=== PATIENT | male | born 1990 | race Hispanic/Latino ===

== ENCOUNTER 2018-01-19 01:02 | Emergency (ER) | payer MEDICAID ==
[2018-01-19 08:50] LABS: Bacteria,Urine 1+ /HPF (Negative); Bilirubin,Urine NEG (Negative); Blood,Urine NEG (Negative); Color,Urine Yellow (Yellow); Mucus,Urine FEW /HPF; Protein,Urine <15 mg/dL mg/dL (Negative)
--- NOTE | 2018-01-19 09:42 | Emergency Department Report ---
HPI - General Chief Complaint: Urogenital-Male Time Seen by Provider: 01/19/18 09:28 - HPI HPI: This is a 27-year-old male, who is blind, presents to emergency department with complaint of some redness to the tip of his penis after having sex for the very first time with his girlfriend, who is bedside. He says that there is a little bit of clear drainage that she noticed but otherwise he denies any cloudy or cold full discharge, dysuria or any other lesions. No pain to the penis or scrotum. He has not taken anything for his symptoms prior to presentation. No recent travel or sick contacts at home. He does not have a primary care physician. ED Past Medical Hx - Past Medical History Previous Medical History?: Yes Additional medical history: Totally Blind - Surgical History Past Surgical History?: No - Social History Smoking Status: Never Smoker ED Review of Systems ROS: Stated complaint: PENIS PAIN Other details as noted in HPI Comment: All other systems reviewed and negative Constitutional: denies: chills, fever Eyes: denies: eye pain, eye discharge, vision change ENT: denies: ear pain, throat pain Respiratory: denies: cough, shortness of breath, wheezing Cardiovascular: denies: chest pain, palpitations Gastrointestinal: denies: abdominal pain, nausea, diarrhea Genitourinary: denies: dysuria, hematuria, testicular pain Musculoskeletal: denies: back pain, joint swelling, arthralgia Skin: change in color (redness to tip of penis). denies: pruritus Neurological: denies: headache, weakness, paresthesias Physical Exam - Physical Exam Vital Signs: Vital Signs 01/19/18 05:22 Temperature 98.9 F Pulse Rate 88 Respiratory 20 Rate Blood Pressure 131/72 O2 Sat by Pulse 98 Oximetry Physical Exam: GENERAL: The patient is well-developed well-nourished. HENT: Normocephalic. Atraumatic. Patient has moist mucous membranes. EYES: Extraocular motions are intact. NECK: Supple. Trachea is midline. CHEST/LUNGS: Clear to auscultation. There is no respiratory distress noted. HEART/CARDIOVASCULAR: Regular. There is no tachycardia. There is no murmur. ABDOMEN: Abdomen is soft, nontender. Patient has normal bowel sounds. There is no abdominal distention. SKIN: Skin is warm and dry. NEURO: The patient is awake, alert, and oriented. The patient is cooperative. The patient has no focal neurologic deficits. The patient has normal speech. MUSCULOSKELETAL: There is no tenderness or deformity. There is no limitation range of motion. There is no evidence of acute injury. : No tenderness to palpation of the penis or scrotum. There is a small amount of redness to the glans of the penis. No visible discharge or drainage. No lesions. ED Course Vital Signs 01/19/18 05:22 Temperature 98.9 F Pulse Rate 88 Respiratory 20 Rate Blood Pressure 131/72 O2 Sat by Pulse 98 Oximetry ED Medical Decision Making - Medical Decision Making Urinalysis does not show any urinary tract infection. Patient says that he had sex with the very first time and used a condom and it did not break. Therefore it is low suspicion that the patient has a STD. Also there are no lesions and no drainage or discharge. There is a small amount of redness to the glans of the penis which may be consistent with some type of a reaction to the condom itself. Encouraged to follow up with a primary care physician and return to the ER if any worsening of his symptoms or any acute distress. - Differential Diagnosis urethritis, UTI, allergic reaction Critical Care Time: No Critical care attestation.: If time is entered above; I have spent that time in minutes in the direct care of this critically ill patient, excluding procedure time. ED Disposition Clinical Impression: Penile rash Disposition: - TO HOME OR SELFCARE Is pt being admited?: No Condition: Stable Additional Instructions: Please follow-up with a primary care physician in the next few days. Based on the history given to me, as well as the physical examination, it does not appear consistent with any known STD. I think that there is a chance that he may have had a slight reaction to the condom itself. You should continue to use condoms but you may need to try different brands or condoms made out of different materials. Please return to the emergency department immediately if there is any worsening of your symptoms or any acute distress. Referrals: CAIN VENTURA MD [Primary Care Provider] - 3-5 Days LJ HARVEY JR, MD [Staff Physician] - 3-5 Days [facility] [Outside] - 3-5 Days [facility] [Outside] - 3-5 Days Time of Disposition: 09:42
[2018-01-19 09:46] VITALS: BP 118/65
== END 2018-01-19 09:53 | disposition home or self-care (01) ==
LOC: ED 01:02
DX: N48.89 Other specified disorders of penis (principal)
CPT/HCPCS: 81001; 99283

== ENCOUNTER 2018-01-20 01:11 | Emergency (ER) | payer MEDICAID ==
[2018-01-20] MEDS ORDERED: ROCEPHIN IM ONE (08:07)
[2018-01-20] MEDS ORDERED: XYLOCAINE 1% MPF 5 mL INFILTRATI ONE (08:07)
[2018-01-20] MEDS ORDERED: ZITHROMAX PO ONE (08:07)
[2018-01-20] MEDS ORDERED: MOTRIN PO ONE (08:08)
[2018-01-20 08:11] LABS: Bilirubin,Urine NEG (Negative); Blood,Urine NEG (Negative); Color,Urine Yellow (Yellow); Protein,Urine <15 mg/dL mg/dL (Negative); Urobilinogen,Urine < 2.0 mg/dL (<2.0)
--- NOTE | 2018-01-20 08:12 | Emergency Department Report ---
ED Male HPI - General Chief complaint: Urogenital-Male Stated complaint: PENILE PAIN Time Seen by Provider: 01/20/18 07:53 Source: patient Mode of arrival: Ambulatory Limitations: No Limitations - History of Present Illness Initial comments: This is a 27-year-old male nontoxic, well nourished in appearance, no acute signs of distress presents to the ED with c/o of by mouth pain and redness to the tip at the having a sexual intercourse with his girlfriend for the first time who is at bedside. Patient stated that he has allergies to latex and use a condom and ever since then has redness and pain. Patient stated that he was seen her yesterday and had a normal urine test and was sent home to follow up with PCP but patient has not. Patient stated that symptoms have resolved. Patient state he is concerned about a STD and would like to be treated empirically. Patient also has clear drainage. Patient is currently blind by examination symptoms was discussed by girlfriend. Patient denies any testicular pain, penile ulcers, or lesions. Patient denies any fever, chills, nausea, vomiting, chest pain, short of breath, abdominal pain, back pain, stiff neck or headache. Patient denies any urinary symptoms. Patient denies any back pain. Patient stated allergies to clindamycin. Denies significant PMH. MD Complaint: other (penile pain and redness) -: days(s) (3) Location: penis Radiation: none Severity: mild Severity scale (0 -10): 8 Quality: aching Consistency: constant Improves with: none Worsens with: none discharge, rash. denies: swelling, mass, urinary retention, blood in urine, dysuria, fever, nausea/vomiting, incontinence - Related Data Sexually active: Yes Previous Rx's Medication Instructions Recorded Last Taken Type Hydrocortisone 1% [Hydrocortisone 1 applicatio TP BID #1 tube 01/20/18 Unknown Rx 1% CREAM] Allergies Allergy/AdvReac Type Severity Reaction Status Date / Time clindamycin Allergy Angioedema Verified 01/19/18 05:18 ED Review of Systems ROS: Stated complaint: PENILE PAIN Other details as noted in HPI Constitutional: denies: chills, fever Eyes: denies: eye pain, eye discharge, vision change ENT: denies: ear pain, throat pain Respiratory: denies: cough, shortness of breath, wheezing Cardiovascular: denies: chest pain, palpitations Endocrine: no symptoms reported Gastrointestinal: denies: abdominal pain, nausea, diarrhea Genitourinary: denies: urgency, dysuria Musculoskeletal: denies: back pain, joint swelling, arthralgia Skin: rash. denies: lesions Neurological: denies: headache, weakness, paresthesias Psychiatric: denies: anxiety, depression Hematological/Lymphatic: denies: easy bleeding, easy bruising ED Past Medical Hx - Past Medical History Previous Medical History?: Yes Additional medical history: Totally Blind - Surgical History Past Surgical History?: No - Social History Smoking Status: Never Smoker Substance Use Type: None - Medications Home Medications: Home Medications Medication Instructions Recorded Confirmed Last Taken Type Hydrocortisone 1% [Hydrocortisone 1 applicatio TP BID #1 tube 01/20/18 Unknown Rx 1% CREAM] ED Physical Exam - General Limitations: No Limitations General appearance: alert, in no apparent distress - Head Head exam: Present: atraumatic, normocephalic - Eye Eye exam: Present: normal appearance Pupils: Present: normal accommodation - ENT ENT exam: Present: normal exam, mucous membranes moist - Neck Neck exam: Present: normal inspection, full ROM - Respiratory Respiratory exam: Present: normal lung sounds bilaterally. Absent: respiratory distress - Cardiovascular Cardiovascular Exam: Present: regular rate, normal rhythm. Absent: systolic murmur, diastolic murmur, rubs, gallop - GI/Abdominal GI/Abdominal exam: Present: soft, normal bowel sounds - Rectal Rectal exam: Present: deferred - exam: Present: normal inspection, urethral discharge (clear colored). Absent : testicular tenderness, scrotal swelling, vertical testicular lie, circumcision External exam: Present: normal external exam, erythema. Absent: swelling, lesions, lacerations, ecchymosis, bleeding - Extremities Exam Extremities exam: Present: normal inspection, full ROM - Back Exam Back exam: Present: normal inspection, full ROM. Absent: tenderness, CVA tenderness (R), CVA tenderness (L), muscle spasm, paraspinal tenderness, vertebral tenderness, rash noted - Neurological Exam Neurological exam: Present: alert, oriented X3, normal gait - Psychiatric Psychiatric exam: Present: normal affect, normal mood - Skin Skin exam: Present: warm, dry, intact, normal color. Absent: rash ED Course Vital Signs 01/20/18 02:44 Temperature 98.7 F Pulse Rate 80 Respiratory 17 Rate Blood Pressure 132/68 O2 Sat by Pulse 98 Oximetry - Reevaluation(s) Reevaluation #1: 01/20/18 08:13 Patient is speaking in full sentences with no signs of distress noted. ED Medical Decision Making - Medical Decision Making This is a 27-year-old male that presents with a possible allergic reaction from latex condoms. Patient was examined by me. There was a urine collected yesterday on 01/19/2018 with a normal urine with no WBCs or leukocytes. Dr. Schultz see the patient yesterday and instructed patient to follow up with a primary care doctor but patient never did. Patient is requested for a pericardial treatment of STDs patient received Rocephin and azithromycin. I will discharge patient with cortisone cream. Patient was referred to Follow-up with a primary care doctor in 3-5 days or if symptoms worsen and continue return to emergency room as soon as possible. At time of discharge, the patient does not seem toxic or ill in appearance. No acute signs of distress noted. Patient agrees to discharge treatment plan of care. No further questions noted by the patient. Critical care attestation.: If time is entered above; I have spent that time in minutes in the direct care of this critically ill patient, excluding procedure time. ED Disposition Clinical Impression: Irritation of penis Disposition: DC-01 TO HOME OR SELFCARE Is pt being admited?: No Does the pt Need Aspirin: No Condition: Stable Additional Instructions: Follow-up with a primary care doctor in 3-5 days or if symptoms worsen and continue return to emergency room as soon as possible. Prescriptions: Hydrocortisone 1% [Hydrocortisone 1% CREAM] 1 applicatio TP BID #1 tube Referrals: PRIMARY MD AUDREY [Primary Care Provider] - 3-5 Days IRINA BREWSTER MD [Staff Physician] - 3-5 Days [facility] [Outside] - 3-5 Days [facility] [Outside] - 3-5 Days
[2018-01-20 09:45] VITALS: BP 132/70
== END 2018-01-20 09:44 | disposition home or self-care (01) ==
LOC: ED 01:11
DX: N48.89 Other specified disorders of penis (principal); H54.7 Unspecified visual loss; Z88.1 Allergy status to other antibiotic agents
CPT/HCPCS: 81001; 96372; 99283; J0696